=== PATIENT | female | born 1960 | race Caucasian/White ===

== ENCOUNTER → 2022-07-26 | Outpatient (CLI) | payer OTHER, SELFPAY ==
[2022-07-26 12:43] LABS: Absolute Lymphocyte Count 2.33 X10^3/uL (0.83-4.51); Absolute Neutrophil Count 4.2 X10^3/uL (2.0-7.7); Basophil# 0.06 X10^3/uL; Basophil% 0.8 % (0-1); Eosinophil# 0.13 X10^3/uL; Eosinophils% 1.8 % (0-5); Hematocrit 43.9 % (37-47); Hemoglobin 13.9 g/dL (12.0-15.0); Lymphocyte # 2.33 X10^3/ul (0.83-4.51); Lymphocyte % 32.4 % (19-41); Mean Corp Hgb Conc 31.7 g/dL (32-36); Mean Corpuscular Hgb 28.8 pg (27.0-32.0); Mean Corpuscular Volume 90.9 fL (81-99); Mean Platelet Vol. 10.5 fl (6.2-12.0); Monocyte# 0.48 X10^3/uL; Monocyte% 6.7 % (0-10); NRBC Flagged by Analyzer 0 % (0-5); Neutrophil # 4.17 X10^3/uL (2.7-7.7); Platelet Count 375 K/mm3 (150-450); RBC Distribution Width CV 13.3 % (11.6-14.6); RBC Distribution Width SD 44.8 fl (35.1-43.9); Red Blood Count 4.83 M/mm3 (4.2-5.4); White Blood Count 7.2 K/mm3 (4.4-11.0)
[2022-07-26 13:01] LABS: Hemoglobin A1c 5.3 % (3.8-5.6)
[2022-07-26 13:09] LABS: AST(SGOT) 19 U/L (15-37); Alanine Aminotransfer ALT/SGPT 31 U/L (13-56); Albumin, Serum 3.9 g/dL (3.2-5.0); Alkaline Phosphatase 70 U/L (45-117); Anion Gap 6 (5-15); BUN 22 mg/dL (7-18); BUN/Creat Ratio 30.6 RATIO (10-20); Calcium,Total 9.4 mg/dL (8.5-10.1); Chloride 104 mmol/L (98-107); Cholesterol 277 mg/dL (200); Creatinine, Serum 0.72 mg/dL (0.55-1.02); EST Glomerular Filtration Rate 87 mL/min (>60); Est Glom Filt Rate - Afr Amer 105 mL/min (>60); Glucose 91 mg/dL (74-106); High Density Lipoprotein 64 mg/dL; Potassium 4.1 mmol/L (3.5-5.1); Protein, Total 7.9 g/dL (6.4-8.2); Sodium Level 137 mmol/L (136-145); Thyroid Stim Hormone (TSH) 0.92 uIU/mL (0.358-3.74); Triglycerides 127 mg/dL; Very Low Density Lipoprotein 25 mg/dL (5-40)
== END | disposition home or self-care (01) ==
PROVIDERS: PCP Family Medicine; Referring Provider Family Medicine; Visit Provider Family Medicine
DX: Z00.00 Encounter for general adult medical examination without abnormal findings (principal); Z13.0 Encounter for screening for diseases of the blood and blood-forming organs and certain disorders involving the immune mechanism; Z13.1 Encounter for screening for diabetes mellitus; Z13.220 Encounter for screening for lipoid disorders; Z13.29 Encounter for screening for other suspected endocrine disorder
CPT/HCPCS: 36415; 80053; 80061; 83036; 84443; 85025

== ENCOUNTER → 2024-09-11 | Outpatient (CLI) | payer MEDICARE, OTHER, SELFPAY ==
[2024-09-11 13:02] LABS: Absolute Lymphocyte Count 2.72 X10^3/uL (0.83-4.51); Absolute Neutrophil Count 5.3 X10^3/uL (2.0-7.7); Basophil# 0.07 X10^3/uL; Basophil% 0.8 % (0-1); Eosinophil# 0.23 X10^3/uL; Eosinophils% 2.6 % (0-5); Hematocrit 44.3 % (37-47); Hemoglobin 14.3 g/dL (12.0-15.0); Lymphocyte # 2.72 X10^3/ul (0.83-4.51); Lymphocyte % 30.6 % (19-41); Mean Corp Hgb Conc 32.3 g/dL (32-36); Mean Corpuscular Volume 86.9 fL (81-99); Monocyte# 0.57 X10^3/uL; Monocyte% 6.4 % (0-10); NRBC Flagged by Analyzer 0 % (0-5); Neutrophil % 59.5 % (47-70); Platelet Count 356 K/mm3 (150-450); RBC Distribution Width CV 13.2 % (11.6-14.6); RBC Distribution Width SD 41.4 fl (35.1-43.9); White Blood Count 8.9 K/mm3 (4.4-11.0)
[2024-09-11 15:16] LABS: ALB/GLOB Ratio 1.4 RATIO (0.9-2.4); AST(SGOT) 24 U/L (<=31); Alanine Aminotransfer ALT/SGPT 22 U/L (<=34); Albumin, Serum 4.7 g/dL (3.4-4.8); Alkaline Phosphatase 83 U/L (35-104); Anion Gap 13 (5-15); BUN 17 mg/dL (4-19); BUN/Creat Ratio 27.2 RATIO (10-20); Chloride 99 mmol/L (98-108); Cholesterol 278 mg/dL (<=200); Creatinine, Serum 0.64 mg/dL (0.70-1.20); EST Glomerular Filtration Rate 98 (>60); Globulin 3.4 g/dL (2.2-4.2); Glucose 94 mg/dL (70-99); High Density Lipoprotein 48 mg/dL; Low Density Lipoprotein Calc. 160 mg/dL; Protein, Total 8.1 g/dL (5.9-8.4); Sodium Level 138 mmol/L (133-145); Total Bilirubin 0.31 mg/dL (0.00-1.30); Triglycerides 348 mg/dL; Very Low Density Lipoprotein 70 mg/dL (5-40); cholesterol:hdl ratio screen 5.77
== END | disposition home or self-care (01) ==
PROVIDERS: PCP Family Medicine; Visit Provider Family Medicine
DX: Z13.6 Encounter for screening for cardiovascular disorders (principal); Z13.228 Encounter for screening for other metabolic disorders; I10 Essential (primary) hypertension
CPT/HCPCS: 36415; 80053; 80061; 84443; 85025

== ENCOUNTER → 2024-10-02 | Outpatient (CLI) | payer MEDICARE, OTHER, SELFPAY ==
--- NOTE | 2024-10-02 14:27 | BI_ITS ---
EXAM: SCRN MAMM (CAD)W/JUSTIN BILAT DATE: 10/02/2024 CLINICAL HISTORY: F, Age 64 y/o , SCREENING BREAST CANCER RISK ASSESSMENT: Na TECHNIQUE: Bilateral screening digital breast tomosynthesis with 2D and 3D images. Computer aided detection. COMPARISON: None available FINDINGS: TISSUE DENSITY: The breast tissue is composed of scattered area of fibroglandular density. Bilateral Breast Mammographic Findings: No suspicious masses, calcifications or other abnormalities are identified. BI/SCRN MAMM (CAD)W/JUSTIN BILAT IMPRESSION: OVERALL FINAL ASSESSMENT: BIRADS 1 NEGATIVE RECOMMENDATION: Routine annual follow-up in 1 Year A letter with findings and recommendations will be mailed to the patient. Reading Location: [id number]
--- NOTE | 2024-10-02 14:30 | BD_ITS ---
PROCEDURE: DEXA BONE DENSITY STUDY 10/02/2024 REASON FOR EXAM: F, age 64 y/o . TECHNIQUE: DXA scan of sites with data reported below. Scanner utilized: [employer] W. [facility] LINKS[facility] COMPARISON: None FINDINGS: BMD and T-SCORES Lumbar spine: 1.111 g/cm2, T-score 0.6 Levels: L1 through L4 Left femoral neck: 0.946 g/cm2, T-score 0.9 Femoral neck comparison data not recommended for monitoring change. Left total hip: 1.050 g/cm2, T-score 0.9 Right femoral neck: 0.974 g/cm2, T-score 1.1 Femoral neck comparison data not recommended for monitoring change. Right total hip: 1.078 g/cm2, T-score 1.1 The World Health Organization has defined the following categories based on bone density: Normal bone density: T-score equal to or greater than -1.0 Osteopenia: T-score between -1.0 and -2.5 Osteoporosis: T-score equal to or less than -2. BD/Dexa Bone Density Study IMPRESSION: Normal bone mineral density. Reading Location: [facility]
== END | disposition home or self-care (01) ==
LOC: OPBD 14:23
PROVIDERS: PCP Family Medicine; Referring Provider Family Medicine; Visit Provider Family Medicine
DX: Z12.31 Encounter for screening mammogram for malignant neoplasm of breast (principal); Z13.820 Encounter for screening for osteoporosis; Z78.0 Asymptomatic menopausal state
CPT/HCPCS: 77063; 77067; 77080